=== PATIENT | female | born 1950 | race Caucasian/White ===

== ENCOUNTER 2021-03-07 17:01 | Inpatient (IN) ==
[2021-03-07] MEDS ORDERED: 0.9 % SODIUM CHLORIDE 1,000 ML IV ONE (17:05)
--- NOTE | 2021-03-07 17:35 | EKG ---
[facility] Test Date: 2021-03-07 Pat Name: Toyin Leonardo Department: ED Room: Gender: Female Repatcher: darrion : 1950 Requested By: Filipe Lamb Order Number: [id number] Reading MD: Jeremy Neumann M.D. Measurements Intervals Jean Rate: 105 P: -8 UT: 141 QRS: -43 QRSD: 90 T: 96 QT: 322 QTc: 426 Interpretive Statements Sinus tachycardia Inferior infarct, old NO PRIOR TRACING FOR COMPARISON ABNORMAL ECG Electronically Signed On 03-07-2021 17:35:08 PDT by Jeremy Neumann M.D. /store/M0/[id number]
[2021-03-07 17:49] LABS: Basophils # (Auto) 0.04 K/mcL (0.00-0.20); Basophils % (Auto) 0.3 % (0.0-2.0); Eosinophils # (Auto) 0.09 K/mcL (0.00-0.70); Eosinophils % (Auto) 0.8 % (0.0-7.0); Hematocrit 43.6 % (36.0-48.0); Hemoglobin 14.3 g/dL (12.0-15.0); Lymphocytes # (Auto) 1.27 K/mcL (1.50-4.80); Mean Cell Volume 87.9 fL (80.0-100.0); Mean Corpuscular HGB Conc 32.8 g/dL (31.0-36.0); Mean Platelet Volume 9.6 fL (7.4-10.4); Monocytes # (Auto) 0.52 K/mcL (0.10-0.90); Monocytes % (Auto) 4.5 % (1.0-12.0); Neutrophils % (Auto) 83.4 % (38.0-78.0); Platelet Count 151 K/mcL (140-440); RBC 4.96 M/mcL (4.00-5.20); WBC 11.6 K/mcL (4.5-11.0)
[2021-03-07] MEDS ORDERED: ONDANSETRON 4 MG/2 ML VIAL IV ONE (18:04)
--- NOTE | 2021-03-07 18:04 | Emergency Department Note ---
Dizziness HPI General Chief Complaint: Dizziness Stated Complaint: dizzy Time Seen by Provider: 03/07/21 17:05 Source: patient Mode of arrival: wheelchair Limitations: no limitations History of Present Illness HPI Narrative: Narrative: Pleasant 70-year-old female presents emergency department with concerns of lightheadedness weakness. She had a colonoscopy done today and everything had went fine. She was feeling really weak and lightheaded at home and so she went back to see Faith Whitaker. Patient was orthostatic and lightheaded and Faith was concerned since she was tachycardic as well. On colonoscopy she had no signs of colitis. Patient is a use to having blood in her stool but the one loose stool that she had at home prior to coming to the emergency department did not have any signs of melanotic stool or bloody stool. Patient endorses headache but no changes in vision she denies fever, chest pain, shortness of breath, abdominal pain, nausea or vomiting, or cough. She did have her Covid vaccine. She tested negative prior to the colonoscopy. Related Data Home Medications Medication Instructions Recorded Confirmed omega-3 fatty acids 1,000 mg 1,000 mg PO QDAY 08/02/16 03/07/21 capsule B-complex with vitamin C 1 tab PO QDAY 01/12/19 03/07/21 coQ10 100 mg .ROUTE DAILY 01/12/19 03/07/21 calcium phosphate 250 mg-vit D3 4 tab PO QDAY tab 10/01/19 03/07/21 12.5 mcg (500 unit) chewable tablet emergency c 1 tab PO QDAY 10/01/19 03/07/21 magnesium oxide 400 mg PO QDAY 10/01/19 03/07/21 glwcetvzovqp-awvefixt-dnqlau tablet 1 tab PO QDAY 10/01/19 03/07/21 vitamin E (dl, acetate) 180 mg 180 unit PO QDAY cap 10/01/19 03/07/21 (400 unit) capsule fexofenadine [Genna Allergy] 180 mg PO QDAY 02/15/20 03/07/21 balsalazide 2,250 mg PO TID 03/07/21 03/07/21 budesonide-formoterol [Symbicort] 2 puff INHALATION BID 03/07/21 03/07/21 dicyclomine 20 mg PO PRN PRN 03/07/21 03/07/21 guaifenesin [Mucinex] 600 mg PO DAILY 03/07/21 03/07/21 pantoprazole 40 mg PO QDAY 03/07/21 03/07/21 Previous Rx's Medication Instructions Recorded blood pressure test kit-medium #1 each 04/24/18 albuterol sulfate 90 mcg/actuation 1 puff INHALATION Q6H PRN #6.7 g 02/02/20 aerosol inhaler budesonide 3 mg 3 mg PO QAM 30 Days #30 ea 12/13/20 capsule,delayed,extended release atorvastatin 10 mg tablet 10 mg PO QDAY #90 tab 01/25/21 Allergies Allergy/AdvReac Type Severity Reaction Status Date / Time animal dander AdvReac Intermediate Watery Eye Verified 03/07/21 17:07 grass pollen AdvReac Intermediate Sneezing Verified 03/07/21 17:07 house dust mite AdvReac Intermediate Sneezing Verified 03/07/21 17:07 ragweed pollen AdvReac Intermediate Sneezing Verified 03/07/21 17:07 hay AdvReac Intermediate Watery Eye Uncoded 01/25/21 12:32 trees AdvReac Intermediate Sneezing Uncoded 01/25/21 12:32 Review of Systems ROS ROS Narrative: Narrative: All systems ED: reviewed and negative except as stated. Constitutional: Reports chills Cardiovascular: Reports other (Lightheadedness) PFSH Narrative Patient History Narrative: Narrative: Medical/Surgical/Family History All Active Problems (Updated 03/07/21 @ 19:57 by Chase Medina PA-C) Pneumonia (Acute) Hypoxia (Acute) Medicare annual wellness visit, subsequent (Acute) Abnormal facial hair (Acute) Ulcerative colitis with rectal bleeding (Acute) Hiatal hernia with GERD and esophagitis (Acute) Cholelithiasis and cholecystitis with obstruction (Acute) Hematochezia (Acute) Pulmonary hypertension (Chronic) Aortic insufficiency (Acute ~04/2018) Mitral regurgitation (Acute ~04/2018) Fatigue (Acute) Heart palpitations (Acute) Hypertension (Chronic) Hyperlipidemia (Chronic ~2013) Hirsutism (Chronic) COPD (chronic obstructive pulmonary disease) (Chronic) Hemorrhoids, internal (Chronic) Rotator cuff syndrome (Chronic) Tendinitis, calcific, shoulder (Chronic) Osteoarthritis (Chronic) Postherpetic neuralgia (Acute) Medical History Aortic insufficiency (~04/2018) MILD COPD (chronic obstructive pulmonary disease) 01/25/21-50+ years of smoking, stable with symboicort 160/4.5mcg 2 puffs bid. Emphysema/COPD Fatigue GERD (gastroesophageal reflux disease) heartburn with lying down; omeprazole has resolved this Hemorrhoids, internal as below Hirsutism History of tobacco use Hyperlipidemia (~2013) 01/25/21controlled on statin medications Hypertension Left shoulder strain Lentigo benign Medicare annual wellness visit, subsequent Mild pulmonary hypertension Mitral regurgitation (~04/2018) MILD Neoplasm of skin uncertain behavior Non-cardiac chest pain previous cardiac evaluation has been negative, Dr. Kim Osteoarthritis Pain in joint, shoulder region Pulmonary hypertension Rotator cuff syndrome of left shoulder Seborrheic keratosis Shoulder pain (~2013) left shoulder pain intermittent, not debilitating for her Tendinitis, calcific, shoulder left Thyroid disorder Pt. had thyroid disorder in 9th grade. In 1972 when she was , blood work was done and it was normal. Ulcerative colitis Surgical History H/O shoulder surgery (~2014) Left, Dr. Hernandez H/O tubal ligation (~1984) History of laparoscopic cholecystectomy 03/02/2020 Hx of cataract surgery (~2010) Loss of teeth due to extraction has false teeth 1998 Family History Family/Other Diabetes Uncles Family/Other Diabetes Cousin Grandfather Heart attack Maternal Hypertension, essential Maternal Father , age 92 Hypertension, essential Aortic aneurysm Mother , age 92 Hypertension, essential CHF (congestive heart failure) Grandmother Hypertension, essential Maternal Dementia Maternal Family/Other Dementia Aunts Cancer Aunt Sister , age 48 Cancer Social History Smoking Status: Former smoker Alcohol Intake Frequency: does not drink Substance Use: does not use Exam Narrative Narrative: Narrative: General Limitations: no limitations General appearance: Present in no apparent distress Head Head: Present atraumatic and normocephalic Eye Eye: Present EOMI Respiratory Respiratory: Present other Course Vital Signs Vital signs: Vital Signs Temperature 98.3 F 03/07/21 17:02 Pulse Rate 114 H 03/07/21 17:02 Respiratory Rate 18 03/07/21 17:02 Blood Pressure 113/55 03/07/21 17:02 Pulse Oximetry (%) 83 L 03/07/21 17:02 Temperature 98.3 F 03/07/21 17:02 Pulse Rate 116 H 03/07/21 19:31 Respiratory Rate 18 03/07/21 17:02 Blood Pressure 111/47 03/07/21 19:31 Pulse Oximetry (%) 92 03/07/21 19:31 MDM MDM Narrative Medical decision making narrative: Narrative: Rapid Covid negative EKG shows sinus tachycardia at 105 beats a minute left axis deviation there is no signs of Brugada, Suofw-Agxrwieif-Fxvnr or HOCM. There is no ST segment deviations or hyperacute T waves. My interpretation is sinus tachycardia Troponin negative Pro-BMP pending at discharge Chest x ray1. Interstitial infiltrates within the left lung superimposed upon chronic disease 2. Interstitial pneumonia including covid suspected toradol for pain, zofran for nausea. Due to the patient's new oxygen requirement we will admit her for further evaluation and treatment. I have started the patient on Rocephin Flagyl and azithromycin. I spoke with Dr. Saleh who agreed to admit the patient for further evaluation and treatment. He came to the emergency department to evaluate the patient. Lab Data Result diagrams: 03/07/21 17:18 03/07/21 17:18 Labs: Lab Results 03/07/21 03/07/21 03/07/21 Range/Units 17:18 17:18 17:18 WBC 11.6 H (4.5-11.0) K/mcL RBC 4.96 (4.00-5.20) M/mcL Hgb 14.3 (12.0-15.0) g/dL Hct 43.6 (36.0-48.0) % MCV 87.9 (80.0-100.0) fL MCH 28.8 (26.0-34.0) pg MCHC 32.8 (31.0-36.0) g/dL RDW 14.0 (11.5-14.5) % Plt Count 151 (140-440) K/mcL MPV 9.6 (7.4-10.4) fL Neut % (Auto) 83.4 H (38.0-78.0) % Lymph % (Auto) 11.0 L (15.0-49.0) % [place] % (Auto) 4.5 (1.0-12.0) % Eos % (Auto) 0.8 (0.0-7.0) % Baso % (Auto) 0.3 (0.0-2.0) % Lymph # (Auto) 1.27 L (1.50-4.80) K/mcL [place] # (Auto) 0.52 (0.10-0.90) K/mcL Eos # (Auto) 0.09 (0.00-0.70) K/mcL Baso # (Auto) 0.04 (0.00-0.20) K/mcL Absolute Neutrophils 9.64 H (1.80-8.00) K/mcL Sodium 135 (133-145) mmol/L Potassium 3.1 L (3.3-5.1) mmol/L Chloride 94 L (96-108) mmol/L Carbon Dioxide 29 (22-30) mmol/L Anion Gap 12.0 (8.0-16.0) BUN 12 (8-23) mg/dL Creatinine 0.8 (0.6-1.1) mg/dL GFR Calculation 73 Glucose 132 H (70-105) mg/dL Calcium 8.7 (8.6-10.4) mg/dL Total Bilirubin 1.5 H (0.1-1.0) mg/dL AST 65 H (<32) U/L ALT 41 H (<40) U/L Alkaline Phosphatase 86 (39-117) U/L Troponin T < 0.01 (<0.03) ng/mL C-Reactive Protein (0.03-0.80) mg/dL Total Protein 6.6 (5.9-8.4) gm/dL Albumin 4.1 (3.2-5.2) gm/dL Globulin 2.5 (2.2-3.7) gm/dL Albumin/Globulin Ratio 1.6 (1.0-2.3) 03/07/21 Range/Units 17:18 WBC (4.5-11.0) K/mcL RBC (4.00-5.20) M/mcL Hgb (12.0-15.0) g/dL Hct (36.0-48.0) % MCV (80.0-100.0) fL MCH (26.0-34.0) pg MCHC (31.0-36.0) g/dL RDW (11.5-14.5) % Plt Count (140-440) K/mcL MPV (7.4-10.4) fL Neut % (Auto) (38.0-78.0) % Lymph % (Auto) (15.0-49.0) % [place] % (Auto) (1.0-12.0) % Eos % (Auto) (0.0-7.0) % Baso % (Auto) (0.0-2.0) % Lymph # (Auto) (1.50-4.80) K/mcL [place] # (Auto) (0.10-0.90) K/mcL Eos # (Auto) (0.00-0.70) K/mcL Baso # (Auto) (0.00-0.20) K/mcL Absolute Neutrophils (1.80-8.00) K/mcL Sodium (133-145) mmol/L Potassium (3.3-5.1) mmol/L Chloride (96-108) mmol/L Carbon Dioxide (22-30) mmol/L Anion Gap (8.0-16.0) BUN (8-23) mg/dL Creatinine (0.6-1.1) mg/dL GFR Calculation Glucose (70-105) mg/dL Calcium (8.6-10.4) mg/dL Total Bilirubin (0.1-1.0) mg/dL AST (<32) U/L ALT (<40) U/L Alkaline Phosphatase (39-117) U/L Troponin T (<0.03) ng/mL C-Reactive Protein 1.30 H (0.03-0.80) mg/dL Total Protein (5.9-8.4) gm/dL Albumin (3.2-5.2) gm/dL Globulin (2.2-3.7) gm/dL Albumin/Globulin Ratio (1.0-2.3) ED POC Tests ED POC Tests: LINDSAY - SARS Antigen Negative Discharge Plan Patient/Caregiver Discharge Instructions Pt seen by RELIEF MAN/PA only: Yes Clinical Impression: Pneumonia, Hypoxia Patient Disposition: Xfer As Inpt ([facility]) Condition: Fair Follow up with: Yanna Moscoso PA-C [Primary Care Provider] - Prescriptions: No Action (DME) blood pressure test kit-medium kit See Dose Instructions .ROUTE .MEDSUPPLY Qty: 1 RF: 0 albuterol sulfate [ProAir HFA] 90 mcg/actuation HFA aerosol inhaler 1 puff INHALATION Q6H PRN (Reason: shortness of breath) Qty: 6.7 RF: 2 omega-3 fatty acids [Fish Oil Concentrate] 1,000 mg capsule 1,000 mg PO QDAY RF: 0 vitamin E (dl, acetate) 400 unit capsule 180 unit PO QDAY RF: 0 B-complex with vitamin C [Super B Complex-Vitamin C] tablet 1 tab PO QDAY RF: 0 coQ10 tablet 100 mg .Route DAILY RF: 0 atorvastatin 10 mg tablet 10 mg tablet 10 mg PO QDAY Qty: 90 RF: 3 budesonide [Entocort EC] 3 mg capsule,delayed,extend.release 3 mg PO QAM 30 Days Qty: 30 RF: 3 magnesium oxide 250 mg magnesium tablet 400 mg PO QDAY RF: 0 emergency c 1 tab PO QDAY RF: 0 plcfzajdtqke-baihakht-scryja Tablet 1 tab PO QDAY RF: 0 calcium phosphate-vitamin D3 [Citracal-D3 Gummies] 250 mg calcium- 500 unit tablet,chewable 4 tab PO QDAY RF: 0 fexofenadine [Genna Allergy] 180 mg Tablet 180 mg PO QDAY RF: 0 balsalazide 750 mg Capsule 2,250 mg PO TID RF: 0 budesonide-formoterol [Symbicort] 80-4.5 mcg/actuation Hfa Aerosol Inhaler 2 puff INHALATION BID RF: 0 guaifenesin [Mucinex] 600 mg Tablet Extended Release 12hr 600 mg PO DAILY RF: 0 pantoprazole 20 mg tablet,delayed release (DR/EC) 40 mg PO QDAY RF: 0 dicyclomine 20 mg tablet 20 mg PO PRN PRN (Reason: Diarrhea) RF: 0
[2021-03-07 18:12] LABS: ALT/SGPT 41 U/L (<40); AST/SGOT 65 U/L (<32); Albumin 4.1 gm/dL (3.2-5.2); Albumin/Globulin Ratio 1.6 (1.0-2.3); Alkaline Phosphatase 86 U/L (39-117); Bilirubin,Total 1.5 mg/dL (0.1-1.0); Blood Urea Nitrogen 12 mg/dL (8-23); Calcium 8.7 mg/dL (8.6-10.4); Carbon Dioxide 29 mmol/L (22-30); Chloride 94 mmol/L (96-108); Globulin 2.5 gm/dL (2.2-3.7); Glomerular Filtration Rate 73; Glucose 132 mg/dL (70-105)
--- NOTE | 2021-03-07 18:32 | XRay Report ---
INDICATION: hypoxia TECHNIQUE: AP portable upright chest x-ray COMPARISON: Previous chest CT scans dated 01/26/2021, 07/13/2019, 05/17/2018 FINDINGS: Lungs:Lungs are abnormal. Previous CT scans demonstrates subpleural cystic change consistent with honeycombing. There is also reticular abnormality. This is mildly progressive from 06/04/2018 2 01/26/2021. There is no definite bronchiectasis. Appearance is consistent with a UIP pattern. This may be due to collagen vascular disease. Interstitial fibrosis is possible although progression has been slow. Interval development of left-sided infiltrates. These are interstitial. Appearance is consistent with superimposed pneumonia upon underlying lung disease. Covid pneumonia is possible. Clinical correlation and follow-up radiograph recommended. No focal right-sided infiltrates. Heart, vascular:No significant cardiomegaly. Pulmonary vascularity is normal. No pulmonary edema or pulmonary congestion Mediastinum, lewis:No mediastinal widening. No hilar mass Pleura:No pleural fluid. No pleural-based mass or calcification Skeletal:Negative. IMPRESSION: 1. Interstitial infiltrates within the left lung superimposed upon chronic disease 2. Interstitial pneumonia including covid suspected Interpreted and Authenticated by: Howard Trujillo 03/07/21
[2021-03-07] MEDS ORDERED: KETOROLAC 15 MG/ML VIAL IV ONE (18:34)
[2021-03-07] MEDS ORDERED: cefTRIAXone 2 GM in DEXTROSE 5% IN WATER 50 ML IV ONE (19:21)
[2021-03-07] MEDS ORDERED: metroNIDAZOLE 500 MG/100 ML BAG IV ONE (19:22)
[2021-03-07] MEDS ORDERED: AZITHROMYCIN 500 MG in DEXTROSE 5% IN WATER 250 ML IV ONE ×2 (19:22→21:00)
--- NOTE | 2021-03-07 19:33 | Internal Med History&Physical ---
HPI History of Present Illness Patient information: Note initiated : 03/07/21 at 7:30 pm Service Date, if different from initiated Date: [] Patient: Toyin Leonardo a 70 y/o F admitted on for dizzy. Chief Complaint: [] History of present illness: Ms. Leonardo is a 70 year old F Who underwent a colonoscopy today and has a history of ulcerative colitis with occasional rectal bleeding. Colonoscopy report is read as postop diagnosis resolved colitis. She says she started feeling quite ill later on in the day with nausea vomiting headache dizziness. She was not feeling that well afterwards but attributed that to the bowel prep and feeling dehydrated. She went to see Faith Whitaker who noted she was tachycardic and orthostatic and sent her to the ED. In the ED she was hypoxic at 83% on room air. Chest x-ray showed left side infiltrate. Patient did say she was left lateral recumbent position during the procedure. She denies cough currently. Review of Systems: Pertinent positives as above. Denies /fever/chills//chest or abdominal pain/cough/dyspnea. Otherwise see above. PFSH PFSH All Active Problems Medicare annual wellness visit, subsequent (Acute) Abnormal facial hair (Acute) Ulcerative colitis with rectal bleeding (Acute) Hiatal hernia with GERD and esophagitis (Acute) Cholelithiasis and cholecystitis with obstruction (Acute) Hematochezia (Acute) Pulmonary hypertension (Chronic) Aortic insufficiency (Acute ~04/2018) Mitral regurgitation (Acute ~04/2018) Fatigue (Acute) Heart palpitations (Acute) Hypertension (Chronic) Hyperlipidemia (Chronic ~2013) Hirsutism (Chronic) COPD (chronic obstructive pulmonary disease) (Chronic) Hemorrhoids, internal (Chronic) Rotator cuff syndrome (Chronic) Tendinitis, calcific, shoulder (Chronic) Osteoarthritis (Chronic) Postherpetic neuralgia (Acute) Medical History Aortic insufficiency (~04/2018) MILD COPD (chronic obstructive pulmonary disease) 01/25/21-50+ years of smoking, stable with symboicort 160/4.5mcg 2 puffs bid. Emphysema/COPD Fatigue GERD (gastroesophageal reflux disease) heartburn with lying down; omeprazole has resolved this Hemorrhoids, internal as below Hirsutism History of tobacco use Hyperlipidemia (~2013) 01/25/21controlled on statin medications Hypertension Left shoulder strain Lentigo benign Medicare annual wellness visit, subsequent Mild pulmonary hypertension Mitral regurgitation (~04/2018) MILD Neoplasm of skin uncertain behavior Non-cardiac chest pain previous cardiac evaluation has been negative, Dr. Kim Osteoarthritis Pain in joint, shoulder region Pulmonary hypertension Rotator cuff syndrome of left shoulder Seborrheic keratosis Shoulder pain (~2013) left shoulder pain intermittent, not debilitating for her Tendinitis, calcific, shoulder left Thyroid disorder Pt. had thyroid disorder in 9th grade. In 1972 when she was , blood work was done and it was normal. Ulcerative colitis Surgical History H/O shoulder surgery (~2014) Left, Dr. Hernandez H/O tubal ligation (~1984) History of laparoscopic cholecystectomy 03/02/2020 Hx of cataract surgery (~2010) Loss of teeth due to extraction has false teeth 1998 Family History Family/Other Diabetes Uncles Family/Other Diabetes Cousin Grandfather Heart attack Maternal Hypertension, essential Maternal Father , age 92 Hypertension, essential Aortic aneurysm Mother , age 92 Hypertension, essential CHF (congestive heart failure) Grandmother Hypertension, essential Maternal Dementia Maternal Family/Other Dementia Aunts Cancer Aunt Sister , age 48 Cancer Social History (Updated 01/25/21 @ 12:22 by Anali Traore RN) household members: alone housing: house marital status: occupational status: retired occupation: [employer] work in [employer] pets and animals: No sexually active: No other: Children-3 well-balanced diet: daily or most days during the past year weight has: remained stable frequency: 3-4 times per week smoking status: Former smoker quit date: 08/05/14 pack-years: 50 smoking status start date: 08/05/72 smoking status stop date: 10/01/19 alcohol intake frequency: does not drink substance use type: does not use alycia/gnosticist: Spiritism seatbelt use: always victim of physical abuse: No victim of emotional abuse: No victim of sexual abuse: No MEDS/ALLERGIES Home Medications and Allergies Home Medications Medication Instructions Recorded Confirmed Type omega-3 fatty acids 1,000 mg 1,000 mg PO QDAY 08/02/16 03/07/21 History capsule blood pressure test kit-medium #1 each 04/24/18 03/07/21 Rx B-complex with vitamin C 1 tab PO QDAY 01/12/19 03/07/21 History coQ10 100 mg .ROUTE DAILY 01/12/19 03/07/21 History calcium phosphate 250 mg-vit D3 4 tab PO QDAY tab 10/01/19 03/07/21 History 12.5 mcg (500 unit) chewable tablet emergency c 1 tab PO QDAY 10/01/19 03/07/21 History magnesium oxide 400 mg PO QDAY 10/01/19 03/07/21 History goevfmmcqzuh-pcmuluti-uvftmu tablet 1 tab PO QDAY 10/01/19 03/07/21 History vitamin E (dl, acetate) 180 mg 180 unit PO QDAY cap 10/01/19 03/07/21 History (400 unit) capsule albuterol sulfate 90 mcg/actuation 1 puff INHALATION Q6H PRN #6.7 g 02/02/20 03/07/21 Rx aerosol inhaler fexofenadine [Genna Allergy] 180 mg PO QDAY 02/15/20 03/07/21 History budesonide 3 mg 3 mg PO QAM 30 Days #30 ea 12/13/20 03/07/21 Rx capsule,delayed,extended release atorvastatin 10 mg tablet 10 mg PO QDAY #90 tab 01/25/21 03/07/21 Rx balsalazide 2,250 mg PO TID 03/07/21 03/07/21 History budesonide-formoterol [Symbicort] 2 puff INHALATION BID 03/07/21 03/07/21 History dicyclomine 20 mg PO PRN PRN 03/07/21 03/07/21 History guaifenesin [Mucinex] 600 mg PO DAILY 03/07/21 03/07/21 History pantoprazole 40 mg PO QDAY 03/07/21 03/07/21 History Allergies Allergy/AdvReac Type Severity Reaction Status Date / Time animal dander AdvReac Intermediate Watery Eye Verified 03/07/21 17:07 grass pollen AdvReac Intermediate Sneezing Verified 03/07/21 17:07 house dust mite AdvReac Intermediate Sneezing Verified 03/07/21 17:07 ragweed pollen AdvReac Intermediate Sneezing Verified 03/07/21 17:07 hay AdvReac Intermediate Watery Eye Uncoded 01/25/21 12:32 trees AdvReac Intermediate Sneezing Uncoded 01/25/21 12:32 EXAM Constitutional Vitals: Temp Pulse Resp BP Pulse Ox 98.3 F 113 H 18 123/56 95 03/07/21 17:02 03/07/21 18:43 03/07/21 17:02 03/07/21 18:31 03/07/21 18:43 Exam: General: Alert, Awake, No acute Distress Eyes/N/T: EOMI, PERRL, Head/Neck: neck supple, normocephalic atraumatic CV: RRR, No murmurs, normal s1/s2 Pulm: Left-sided rhonchi/rales, no Abd: soft, nontender, +BS x4 Ext: no clubbing/cyanosis/edema Neuro: Alert, no focal deficits, moves all extremities, CN 2-12 grossly intact, symmetrical strength b/l upper/lower, sensations intact b/l upper/lower Skin: warm/dry DATA Data Completed and Pending Labs: Labs from last 24 hours 03/07/21 03/07/21 03/07/21 18:43 17:18 17:18 WBC RBC Hgb Hct MCV MCH MCHC RDW Plt Count MPV Neut % (Auto) Lymph % (Auto) [place] % (Auto) Eos % (Auto) Baso % (Auto) Lymph # (Auto) [place] # (Auto) Eos # (Auto) Baso # (Auto) Absolute Neutrophils Platelet Estimate RBC Morphology Sodium Potassium Chloride Carbon Dioxide Anion Gap BUN Creatinine GFR Calculation Glucose Calcium Total Bilirubin AST ALT Alkaline Phosphatase Troponin T C-Reactive Protein Pending NT-Pro-B Natriuret Pep Pending Total Protein Albumin Globulin Albumin/Globulin Ratio Procalcitonin Pending 03/07/21 03/07/21 03/07/21 17:18 17:18 17:18 WBC RBC Hgb Hct MCV MCH MCHC RDW Plt Count MPV Neut % (Auto) Lymph % (Auto) [place] % (Auto) Eos % (Auto) Baso % (Auto) Lymph # (Auto) Winston # (Auto) Eos # (Auto) Baso # (Auto) Absolute Neutrophils Platelet Estimate Pending RBC Morphology Pending Sodium 135 Potassium 3.1 L Chloride 94 L Carbon Dioxide 29 Anion Gap 12.0 BUN 12 Creatinine 0.8 GFR Calculation 73 Glucose 132 H Calcium 8.7 Total Bilirubin 1.5 H AST 65 H ALT 41 H Alkaline Phosphatase 86 Troponin T < 0.01 C-Reactive Protein NT-Pro-B Natriuret Pep Total Protein 6.6 Albumin 4.1 Globulin 2.5 Albumin/Globulin Ratio 1.6 Procalcitonin 03/07/21 17:18 WBC 11.6 H RBC 4.96 Hgb 14.3 Hct 43.6 MCV 87.9 MCH 28.8 MCHC 32.8 RDW 14.0 Plt Count 151 MPV 9.6 Neut % (Auto) 83.4 H Lymph % (Auto) 11.0 L Winston % (Auto) 4.5 Eos % (Auto) 0.8 Baso % (Auto) 0.3 Lymph # (Auto) 1.27 L Winston # (Auto) 0.52 Eos # (Auto) 0.09 Baso # (Auto) 0.04 Absolute Neutrophils 9.64 H Platelet Estimate RBC Morphology Sodium Potassium Chloride Carbon Dioxide Anion Gap BUN Creatinine GFR Calculation Glucose Calcium Total Bilirubin AST ALT Alkaline Phosphatase Troponin T C-Reactive Protein NT-Pro-B Natriuret Pep Total Protein Albumin Globulin Albumin/Globulin Ratio Procalcitonin A/P Narrative A/P Narrative: A: *Aspiration pneumonitis vs pneumonia: *Acute hypoxic respiratory failure: 2/2 above *Hypokalemia: *COPD(not on home O2): Follows with pulmonology *h/o UC: Follows with Dr. Morris *GERD: * P: -Rocephin/Flagyl -IS/Acapella -Electrolyte replacement -IVF - -pt/ot -ppx: ambulation/SCDs (chemical given history of rectal bleeding from UC) /home PPI full code Time Spent With Patient Time: Total time spent is greater than 50% in coordination of care (as documented) at patient's floor/unit and/or counseling patient:
[2021-03-07 19:58] LABS: Band Neutrophils % 1 % (0-10); Eosinophils % (Manual) 2 % (0-7); Lymphocytes % 17 % (15-49); Monocytes % (Manual) 3 % (1-12); Platelet Estimate NORMAL (Normal); RBC Morphology NORMAL (Normal); Segmented Neutrophils % 77 % (38-78)
[2021-03-07] MEDS ORDERED: POTASSIUM CHLORIDE 20 MEQ TABLET PO PRN ×2 (20:38)
[2021-03-07] MEDS ORDERED: METOCLOPRAMIDE 10 MG/2 ML VIAL IV PRN (20:38)
[2021-03-07] MEDS ORDERED: POLYETHYLENE GLYCOL 3350 17 GM PACKET PO PRN (20:38)
[2021-03-07] MEDS ORDERED: IPRATROPIUM/ALBUTEROL 3 ML AMPUL.NEB NEB PRN (20:38)
[2021-03-07] MEDS ORDERED: POTASSIUM CHLORIDE 20 MEQ in DEXTROSE 5% IN WATER 250 ML IV ONE (20:38)
[2021-03-07] MEDS ORDERED: POTASSIUM CHLORIDE 40 MEQ in DEXTROSE 5% IN WATER 500 ML IV PRN (20:38)
[2021-03-07] MEDS ORDERED: 0.9 % SODIUM CHLORIDE 1,000 ML IV SCH (20:38)
[2021-03-07] MEDS ORDERED: ONDANSETRON 4 MG/2 ML VIAL IV PRN (20:38)
[2021-03-07] MEDS ORDERED: MAGNESIUM SULFATE 2 GM/50 ML BAG IV PRN (20:38)
[2021-03-07] MEDS ORDERED: SENNOSIDES 1 TABLET PO PRN (20:38)
[2021-03-07] MEDS: metroNIDAZOLE 500 MG/100 ML BAG IV SCH (21:07)
[2021-03-07] MEDS ORDERED: POTASSIUM CHLORIDE 20 MEQ/10 ML VIAL IV ONE (21:44)
[2021-03-07] MEDS: 0.9 % SODIUM CHLORIDE 10 ML SYRINGE IV SCH (22:08)
[2021-03-07] MEDS: ACETAMINOPHEN 325 MG TABLET PO PRN (22:44)
[2021-03-07] MEDS ORDERED: LACTATED RINGERS 1,000 ML IV ONE (23:34)
[2021-03-07] MEDS ORDERED: LACTATED RINGERS 500 ML IV ONE (23:34)
[2021-03-08] MEDS ORDERED: LACTATED RINGERS 500 ML IV ONE (00:45)
[2021-03-08 01:40] LABS: Appearance,Urine CLEAR (Clear); Bilirubin,Urine Negative (Negative); Color,Urine YELLOW; Culture Indicated,Urine yes; Glucose,Urine (UA) Negative (Negative); Ketones,Urine Negative (Negative); Leukocyte Esterase,Urine 500 /ug (Negative); Nitrate,Urine Negative (Negative); Protein,Urine Negative (Negative); Specific Gravity,Urine 1.004 (1.000-1.035); Urine Blood >=1.0 mg/dL (Negative); Urine RBC 6 /hpf (0-3); Urine Squamous Epithelial Cell < 1 /hpf (0-4); Urine WBC 42 /hpf (0-4); Urobilinogen,Urine Negative
[2021-03-08] MEDS ORDERED: LACTATED RINGERS 250 ML IV ONE (02:00)
[2021-03-08] MEDS: ACETAMINOPHEN 325 MG TABLET PO PRN (04:55)
[2021-03-08] MEDS: metroNIDAZOLE 500 MG/100 ML BAG IV SCH ×3 (05:26→23:20)
[2021-03-08] MEDS: 0.9 % SODIUM CHLORIDE 10 ML SYRINGE IV SCH ×3 (06:01→23:20)
[2021-03-08] MEDS: PANTOPRAZOLE 40 MG TABLET PO SCH (07:20)
[2021-03-08 07:27] LABS: Basophils # (Auto) 0.04 K/mcL (0.00-0.20); Basophils % (Auto) 0.3 % (0.0-2.0); Eosinophils # (Auto) 0.12 K/mcL (0.00-0.70); Eosinophils % (Auto) 0.8 % (0.0-7.0); Hematocrit 37.9 % (36.0-48.0); Hemoglobin 11.9 g/dL (12.0-15.0); Lymphocytes # (Auto) 1.67 K/mcL (1.50-4.80); Lymphocytes % (Auto) 10.7 % (15.0-49.0); Mean Cell Volume 90.5 fL (80.0-100.0); Mean Corpuscular HGB Conc 31.4 g/dL (31.0-36.0); Mean Platelet Volume 10.2 fL (7.4-10.4); Monocytes # (Auto) 1.07 K/mcL (0.10-0.90); Monocytes % (Auto) 6.9 % (1.0-12.0); Neutrophils % (Auto) 81.3 % (38.0-78.0); Platelet Count 135 K/mcL (140-440); RBC 4.19 M/mcL (4.00-5.20); Red Cell Distribution Width 14.6 % (11.5-14.5); WBC 15.6 K/mcL (4.5-11.0)
[2021-03-08 07:36] LABS: ALT/SGPT 33 U/L (<40); AST/SGOT 51 U/L (<32); Albumin/Globulin Ratio 1.4 (1.0-2.3); Alkaline Phosphatase 69 U/L (39-117); Bilirubin,Direct 0.3 mg/dL (<0.3); Bilirubin,Total 1.1 mg/dL (0.1-1.0); Blood Urea Nitrogen 10 mg/dL (8-23); Calcium 8.1 mg/dL (8.6-10.4); Carbon Dioxide 26 mmol/L (22-30); Chloride 104 mmol/L (96-108); Globulin 2.2 gm/dL (2.2-3.7); Glomerular Filtration Rate 73; Glucose 93 mg/dL (70-105); Lactate Dehydrogenase 283 U/L (135-225); Phosphorous 2.5 mg/dL (2.5-4.5); Triglycerides 57 mg/dL (<150); Uric Acid 4.9 mg/dL (2.5-8.0)
--- NOTE | 2021-03-08 07:59 | Internal Med Progress Note ---
SUBJECTIVE Subjective Patient information: Note initiated : 03/08/21 at 7:55 am Service Date, if different from initiated Date: [] Patient: Toyin Leonardo 70 y/o F admitted on 03/07/21 for dizzy. Chief Complaint: [] Interval history: History of present illness: Ms. Leonardo is a 70 year old F Who underwent a colonoscopy today and has a history of ulcerative colitis with occasional rectal bleeding. Colonoscopy report is read as postop diagnosis resolved colitis. She says she started feeling quite ill later on in the day with nausea vomiting headache dizziness. She was not feeling that well afterwards but attributed that to the bowel prep and feeling dehydrated. She went to see Faith Whitaker who noted she was tachycardic and orthostatic and sent her to the ED. In the ED she was hypoxic at 83% on room air. Chest x-ray showed left side infiltrate. Patient did say she was left lateral recumbent position during the procedure. She denies cough currently. 8/4 Feeling much better today after IV fluid boluses. Poor sleep. Headaches. No vomiting. Review of Systems: denies headache/fever/chills/vomiting/chest or abdominal pain/cough/dysp amor/diarrhea. Otherwise see above. Constitutional Vitals: Vital Signs Temp Pulse Resp BP Pulse Ox 98.6 F 84 16 98/56 94 03/08/21 03:19 03/08/21 03:19 03/08/21 03:19 03/08/21 03:59 03/08/21 03:19 Period Temp Pulse Resp BP Sys/Woodson Pulse Ox Last 24 Hr 98.3 F-99.2 F 82-116 16-18 79-129/37-64 83-95 Intake and Output 03/07/21 03/08/21 03/08/21 21:59 05:59 13:59 Intake Total 999 1810 1150 Output Total 1500 300 Balance 999 310 850 Weight 71.078 kg Intake & Output: Intake & Output 03/07/21 03/08/21 03/08/21 21:59 05:59 13:59 Intake Total 999 1810 1150 Output Total 1500 300 Balance 999 310 850 Weight 71.078 kg Intake: IV 999 1610 1150 Sodium Chloride 0.9% 1,000 ml @ 999 1000 75 mls/hr IV .[id number] [facility] Rx#: [id number] Zithromax 500 mg In Dextrose 5% 250 in Water 250 ml @ 250 mls/hr IV ONCE ONE Rx#:[id number] Lactated Ringers 1,000 ml @ 1000 Wide Open IV BOLUS ONE Rx#: [id number] Potassium Chloride 20 Meq In 260 Dextrose 5% in Water 250 ml @ 130 mls/hr IV ONCE ONE Rx#: [id number] Rocephin 2 gm In Dextrose 5% in 50 Water 50 ml @ 100 mls/hr IV ONCE ONE Rx#:[id number] Oral 200 Output: Void Amount 1500 300 Other: Urine Appearance Clear Urine Color Bright Yellow Pale Exam: General: Alert, Awake, No acute Distress Eyes/N/T: EOMI, Head/Neck: neck supple, CV: RRR, No murmurs, Pulm: Left-sided rhonchi/rales, no wheezing Abd: soft, nontender, +BS x4 Ext: no clubbing/cyanosis/edema Neuro: Alert, no focal deficits, moves all extremities, Skin: warm/dry OBJ DATA Labs CBC & Chem 7: 03/08/21 05:18 03/08/21 05:18 Labs: Abnormal Lab Results 03/08/21 03/08/21 03/08/21 05:18 05:18 05:17 WBC 15.6 H Hgb 11.9 L RDW 14.6 H Plt Count 135 L Neut % (Auto) 81.3 H Lymph % (Auto) 10.7 L Lymph # (Auto) [place] # (Auto) 1.07 H Absolute Neutrophils 12.66 H Potassium Chloride Anion Gap 7.0 L Glucose Calcium 8.1 L Total Bilirubin 1.1 H Direct Bilirubin 0.3 H GGT 67 H AST 51 H ALT Lactate Dehydrogenase 283 H C-Reactive Protein 9.30 H NT-Pro-B Natriuret Pep Total Protein 5.2 L Albumin 3.0 L Procalcitonin Urine Occult Blood Ur Leukocyte Esterase Urine RBC Urine WBC 03/07/21 03/07/21 03/07/21 18:43 17:18 17:18 WBC Hgb RDW Plt Count Neut % (Auto) Lymph % (Auto) Lymph # (Auto) [place] # (Auto) Absolute Neutrophils Potassium Chloride Anion Gap Glucose Calcium Total Bilirubin Direct Bilirubin GGT AST ALT Lactate Dehydrogenase C-Reactive Protein 1.30 H NT-Pro-B Natriuret Pep 198.4 H Total Protein Albumin Procalcitonin 0.66 H Urine Occult Blood Ur Leukocyte Esterase Urine RBC Urine WBC 03/07/21 03/07/21 03/07/21 17:18 17:18 01:10 WBC 11.6 H Hgb RDW Plt Count Neut % (Auto) 83.4 H Lymph % (Auto) 11.0 L Lymph # (Auto) 1.27 L [place] # (Auto) Absolute Neutrophils 9.64 H Potassium 3.1 L Chloride 94 L Anion Gap Glucose 132 H Calcium Total Bilirubin 1.5 H Direct Bilirubin GGT AST 65 H ALT 41 H Lactate Dehydrogenase C-Reactive Protein NT-Pro-B Natriuret Pep Total Protein Albumin Procalcitonin Urine Occult Blood >=1.0 A Ur Leukocyte Esterase 500 A Urine RBC 6 H Urine WBC 42 H Meds: Medications Acetaminophen (Acetaminophen 325 Mg Tablet) 650 mg PO Q6HP PRN PRN Reason: PAIN/FEVER > 101 Last Admin: 03/08/21 04:55 Dose: 650 mg Documented by: Albuterol/Ipratropium (Ipratropium/Albuterol 3 Ml Ampul.Neb) 3 ml NEB Q4HP PRN PRN Reason: Shortness Of Breath Last Admin: 03/07/21 22:56 Dose: 3 ml Documented by: Potassium Chloride 40 meq/ (Dextrose) 520 mls @ 130 mls/hr IV UD PRN PRN Reason: Potassium < 3 Magnesium Sulfate (Magnesium Sulfate) 2 gm in 50 mls @ 50 mls/hr IV UD PRN PRN Reason: Magnesium </= 1.6 Sodium Chloride (Sodium Chloride 0.9%) 1,000 mls @ 75 mls/hr IV .[id number] [facility] Stop: 03/08/21 09:57 Last Infusion: 03/08/21 06:43 Dose: Infused Documented by: Ceftriaxone Sodium 2 gm/ (Dextrose) 50 mls @ 100 mls/hr IV Q24H LOUISA; Protocol Metronidazole (Flagyl) 500 mg in 100 mls @ 100 mls/hr IV Q8H LOUISA; Protocol Last Infusion: 03/08/21 07:27 Dose: Infused Documented by: Metoclopramide HCl (Metoclopramide 10 Mg/2 Ml Vial) 10 mg IV Q6HP PRN PRN Reason: Nausea And Vomiting Ondansetron HCl (Ondansetron 4 Mg/2 Ml Vial) 4 mg IV Q4HP PRN PRN Reason: Nausea And Vomiting Pantoprazole Sodium (Pantoprazole 40 Mg Tablet) 40 mg PO QAMAC [facility] Last Admin: 03/08/21 07:20 Dose: 40 mg Documented by: Polyethylene Glycol (Polyethylene Glycol 3350 17 Gm Packet) 17 gm PO DAILYP PRN PRN Reason: Constipation Potassium Chloride (Potassium Chloride 20 Meq Tablet) 40 meq PO UD PRN PRN Reason: Potssium is 3-3.5 Potassium Chloride (Potassium Chloride 20 Meq Tablet) 40 meq PO UD PRN PRN Reason: Potassium < 3 Senna (Sennosides 1 Tablet) 2 tab PO DAILYP PRN PRN Reason: Constipation Sodium Chloride (0.9 % Sodium Chloride 10 Ml Syringe) 10 ml IV Q8 [facility] Last Admin: 03/08/21 06:01 Dose: Not Given Documented by: A/P Narrative A/P Narrative: A: *Aspiration pneumonitis vs pneumonia: *Acute hypoxic respiratory failure: 2/2 above -on 2L NC *Hypokalemia: resolved *COPD(not on home O2): Follows with pulmonology *h/o UC: Follows with Dr. Morris *GERD: * P: -Rocephin/Flagyl -IS/Acapella, wean O2 -Electrolyte replacement -IVF -pt/ot -ppx: ambulation/SCDs (chemical given history of rectal bleeding from UC) /home PPI full code Time Spent With Patient Time: Total time spent is greater than 50% in coordination of care (as documented) at patient's floor/unit and/or counseling patient: QUALITY VTE Deep Vein Thrombosis/Pulmonary Embolism Present on Admission: No
[2021-03-08] MEDS ORDERED: DICYCLOMINE 20 MG TABLET PO PRN (08:16)
[2021-03-08] MEDS ORDERED: BUTALB/ACETAMINOPHEN/CAFFEINE 1 TABLET PO ONE (08:16)
[2021-03-08] MEDS ORDERED: BUDESONIDE 3 MG CAP.XL.24H PO SCH (09:00)
[2021-03-08] MEDS: cefTRIAXone 2 GM in DEXTROSE 5% IN WATER 50 ML IV SCH (09:24)
[2021-03-08] MEDS: BUTALB/ACETAMINOPHEN/CAFFEINE 1 TABLET PO PRN ×2 (15:27→23:26)
[2021-03-08] MEDS: ATORVASTATIN 10 MG TABLET PO SCH (19:35)
[2021-03-09] MEDS: 0.9 % SODIUM CHLORIDE 10 ML SYRINGE IV SCH ×3 (05:46→22:40)
[2021-03-09] MEDS: metroNIDAZOLE 500 MG/100 ML BAG IV SCH ×3 (05:46→22:35)
[2021-03-09 06:29] LABS: Hemoglobin 11.2 g/dL (12.0-15.0); Mean Cell Volume 92.3 fL (80.0-100.0); Mean Corpuscular HGB Conc 30.3 g/dL (31.0-36.0); Mean Platelet Volume 10.2 fL (7.4-10.4); Platelet Count 118 K/mcL (140-440); RBC 4.01 M/mcL (4.00-5.20); Red Cell Distribution Width 14.4 % (11.5-14.5); WBC 11.5 K/mcL (4.5-11.0)
[2021-03-09 06:57] LABS: Blood Urea Nitrogen 6 mg/dL (8-23); Carbon Dioxide 22 mmol/L (22-30); Chloride 106 mmol/L (96-108); Glomerular Filtration Rate 86; Glucose 91 mg/dL (70-105)
[2021-03-09] MEDS: PANTOPRAZOLE 40 MG TABLET PO SCH (08:22)
[2021-03-09] MEDS: BUDESONIDE 3 MG CAP.XL.24H PO SCH (08:23)
--- NOTE | 2021-03-09 08:36 | Internal Med Progress Note ---
SUBJECTIVE Subjective Patient information: Note initiated : 03/09/21 at 8:32 am Service Date, if different from initiated Date: [] Patient: Toyin Leonardo 70 y/o F admitted on 03/07/21 for dizzy. Chief Complaint: [] Interval history: History of present illness: Ms. Leonardo is a 70 year old F Who underwent a colonoscopy today and has a history of ulcerative colitis with occasional rectal bleeding. Colonoscopy report is read as postop diagnosis resolved colitis. She says she started feeling quite ill later on in the day with nausea vomiting headache dizziness. She was not feeling that well afterwards but attributed that to the bowel prep and feeling dehydrated. She went to see Faith Whitaker who noted she was tachycardic and orthostatic and sent her to the ED. In the ED she was hypoxic at 83% on room air. Chest x-ray showed left side infiltrate. Patient did say she was left lateral recumbent position during the procedure. She denies cough currently. 8 Feeling much better today after IV fluid boluses. Poor sleep. Headaches. No vomiting. 03/09 Patient continues to feel better. Does have some headaches but improved. No nausea vomiting. Feeling less weak. On 1 L nasal cannula. Review of Systems: denies headache/fever/chills/vomiting/chest or abdominal pain/cough/dyspnea/diarrhea. Otherwise see above. Constitutional Vitals: Vital Signs Temp Pulse Resp BP Pulse Ox 97.4 F 78 16 130/66 92 03/09/21 07:23 03/09/21 07:23 03/09/21 07:23 03/09/21 07:23 03/09/21 07:23 Period Temp Pulse Resp BP Sys/Woodson Pulse Ox Last 24 Hr 97.4 F-98.7 F 78-93 16-18 107-139/58-71 92-93 Intake and Output 03/08/21 03/09/21 03/09/21 21:59 05:59 13:59 Intake Total 580 300 Output Total 900 350 Balance -320 -50 Weight 73.21 kg Intake & Output: Intake & Output 03/08/21 03/09/21 03/09/21 21:59 05:59 13:59 Intake Total 580 300 Output Total 900 350 Balance -320 -50 Weight 73.21 kg Intake: IV 100 100 Oral 480 200 Output: Void Amount 900 350 Other: Meal Dinner Percent of Meal Consumed 100% Feeding Ability Independent Urine Appearance Clear Clear Urine Color Pale Bright Yellow Urine Odor Normal Normal Stool Size Moderate Moderate Stool Color Brown Brown Bright Red Blood Bright Red Blood Stool Consistency Soft Liquid Loose Loose # Voids 1 # Bowel Movements 1 Exam: General: Alert, Awake, No acute Distress Eyes/N/T: EOMI, Head/Neck: neck supple, CV: RRR, No murmurs, Pulm: Left-sided rhonchi/rales gradually improving, no wheezing Abd: soft, nontender, +BS x4 Ext: no clubbing/cyanosis/edema Neuro: Alert, no focal deficits, moves all extremities, Skin: warm/dry OBJ DATA Labs CBC & Chem 7: 03/09/21 05:08 03/09/21 05:08 Labs: Abnormal Lab Results 03/09/21 03/09/21 03/09/21 05:08 05:08 05:08 WBC 11.5 H Hgb 11.2 L MCHC 30.3 L RDW Plt Count 118 L Neut % (Auto) Lymph % (Auto) Lymph # (Auto) [place] # (Auto) Absolute Neutrophils Potassium Chloride Anion Gap BUN 6 L Glucose Calcium 8.0 L Total Bilirubin Direct Bilirubin GGT AST ALT Lactate Dehydrogenase C-Reactive Protein 23.30 H NT-Pro-B Natriuret Pep Total Protein Albumin Procalcitonin 3.84 H Urine Occult Blood Ur Leukocyte Esterase Urine RBC Urine WBC 03/08/21 03/08/21 03/08/21 05:18 05:18 05:17 WBC 15.6 H Hgb 11.9 L MCHC RDW 14.6 H Plt Count 135 L Neut % (Auto) 81.3 H Lymph % (Auto) 10.7 L Lymph # (Auto) [place] # (Auto) 1.07 H Absolute Neutrophils 12.66 H Potassium Chloride Anion Gap 7.0 L BUN Glucose Calcium 8.1 L Total Bilirubin 1.1 H Direct Bilirubin 0.3 H GGT 67 H AST 51 H ALT Lactate Dehydrogenase 283 H C-Reactive Protein NT-Pro-B Natriuret Pep Total Protein 5.2 L Albumin 3.0 L Procalcitonin 3.85 H Urine Occult Blood Ur Leukocyte Esterase Urine RBC Urine WBC 03/08/21 03/07/21 03/07/21 05:17 18:43 17:18 WBC Hgb MCHC RDW Plt Count Neut % (Auto) Lymph % (Auto) Lymph # (Auto) [place] # (Auto) Absolute Neutrophils Potassium Chloride Anion Gap BUN Glucose Calcium Total Bilirubin Direct Bilirubin GGT AST ALT Lactate Dehydrogenase C-Reactive Protein 9.30 H NT-Pro-B Natriuret Pep 198.4 H Total Protein Albumin Procalcitonin 0.66 H Urine Occult Blood Ur Leukocyte Esterase Urine RBC Urine WBC 03/07/21 03/07/21 03/07/21 17:18 17:18 17:18 WBC 11.6 H Hgb MCHC RDW Plt Count Neut % (Auto) 83.4 H Lymph % (Auto) 11.0 L Lymph # (Auto) 1.27 L [place] # (Auto) Absolute Neutrophils 9.64 H Potassium 3.1 L Chloride 94 L Anion Gap BUN Glucose 132 H Calcium Total Bilirubin 1.5 H Direct Bilirubin GGT AST 65 H ALT 41 H Lactate Dehydrogenase C-Reactive Protein 1.30 H NT-Pro-B Natriuret Pep Total Protein Albumin Procalcitonin Urine Occult Blood Ur Leukocyte Esterase Urine RBC Urine WBC 03/07/21 01:10 WBC Hgb MCHC RDW Plt Count Neut % (Auto) Lymph % (Auto) Lymph # (Auto) [place] # (Auto) Absolute Neutrophils Potassium Chloride Anion Gap BUN Glucose Calcium Total Bilirubin Direct Bilirubin GGT AST ALT Lactate Dehydrogenase C-Reactive Protein NT-Pro-B Natriuret Pep Total Protein Albumin Procalcitonin Urine Occult Blood >=1.0 A Ur Leukocyte Esterase 500 A Urine RBC 6 H Urine WBC 42 H Meds: Medications Acetaminophen (Acetaminophen 325 Mg Tablet) 650 mg PO Q6HP PRN PRN Reason: PAIN/FEVER > 101 Last Admin: 03/08/21 04:55 Dose: 650 mg Documented by: Acetaminophen/Butalbital/Caffeine (Butalb/Acetaminophen/Caffeine 1 Tablet) 1 tab PO Q6HP PRN PRN Reason: Headache Last Admin: 03/08/21 23:26 Dose: 1 tab Documented by: Albuterol/Ipratropium (Ipratropium/Albuterol 3 Ml Ampul.Neb) 3 ml NEB Q4HP PRN PRN Reason: Shortness Of Breath Last Admin: 03/07/21 22:56 Dose: 3 ml Documented by: Atorvastatin Calcium (Atorvastatin 10 Mg Tablet) 10 mg PO HS LOUISA Last Admin: 03/08/21 19:35 Dose: 10 mg Documented by: Budesonide (Budesonide 3 Mg Cap.Xl.24h) 9 mg PO QAM [facility] Last Admin: 03/09/21 08:23 Dose: 9 mg Documented by: Dicyclomine HCl (Dicyclomine 20 Mg Tablet) 20 mg PO DAILYP PRN PRN Reason: Diarrhea Last Admin: 03/09/21 05:56 Dose: 20 mg Documented by: Potassium Chloride 40 meq/ (Dextrose) 520 mls @ 130 mls/hr IV UD PRN PRN Reason: Potassium < 3 Magnesium Sulfate (Magnesium Sulfate) 2 gm in 50 mls @ 50 mls/hr IV UD PRN PRN Reason: Magnesium </= 1.6 Ceftriaxone Sodium 2 gm/ (Dextrose) 50 mls @ 100 mls/hr IV Q24H [facility]; Protocol Last Infusion: 03/08/21 10:00 Dose: Infused Documented by: Metronidazole (Flagyl) 500 mg in 100 mls @ 100 mls/hr IV Q8H [facility]; Protocol Last Admin: 03/09/21 05:46 Dose: 100 mls/hr Documented by: Metoclopramide HCl (Metoclopramide 10 Mg/2 Ml Vial) 10 mg IV Q6HP PRN PRN Reason: Nausea And Vomiting Ondansetron HCl (Ondansetron 4 Mg/2 Ml Vial) 4 mg IV Q4HP PRN PRN Reason: Nausea And Vomiting Pantoprazole Sodium ([facility] 40 Mg Tablet) [facility] Last Admin: 03/09/21 08:22 Dose: 40 mg Documented by: Balsalazide 750 Mg (Capsule) 1 dose PO TID [facility] Last Admin: 03/09/21 08:23 Dose: 1 dose Documented by: Budesonide- Formoterol [ Symbicort] 160-4.5 Mcg/Actuation Inhaler 1 dose INH BID [facility] Last Admin: 03/09/21 08:25 Dose: 1 dose Documented by: Polyethylene Glycol (Polyethylene Glycol 3350 17 Gm Packet) 17 gm PO DAILYP PRN PRN Reason: Constipation Potassium Chloride (Potassium Chloride 20 Meq Tablet) 40 meq PO UD PRN PRN Reason: Potssium is 3-3.5 Potassium Chloride (Potassium Chloride 20 Meq Tablet) 40 meq PO UD PRN PRN Reason: Potassium < 3 Senna (Sennosides 1 Tablet) 2 tab PO DAILYP PRN PRN Reason: Constipation Sodium Chloride (0.9 % Sodium Chloride 10 Ml Syringe) 10 ml IV Q8 [facility] Last Admin: 03/09/21 05:46 Dose: 10 ml Documented by: A/P Narrative A/P Narrative: A: *Aspiration pneumonia: -leukocytosis improving *Acute hypoxic respiratory failure: 2/2 above -on 1L NC *Hypokalemia: resolved *COPD(not on home O2): Follows with pulmonology *h/o UC: Follows with Dr. Morris *GERD: * P: -Rocephin/Flagyl -IS/Acapella -wean O2, may need O2 upon d/c given copd -pt/ot -ppx: ambulation/SCDs (chemical given history of rectal bleeding from UC)/home PPI full code Time Spent With Patient Time: Total time spent is greater than 50% in coordination of care (as documented) at patient's floor/unit and/or counseling patient: QUALITY VTE Deep Vein Thrombosis/Pulmonary Embolism Present on Admission: No
[2021-03-09 08:41] LABS: Band Neutrophils % 4 % (0-10); Lymphocytes % 7 % (15-49); Monocytes % (Manual) 8 % (1-12); Platelet Estimate DECREASED (Normal); RBC Morphology NORMAL (Normal); Segmented Neutrophils % 81 % (38-78)
[2021-03-09] MEDS: cefTRIAXone 2 GM in DEXTROSE 5% IN WATER 50 ML IV SCH (08:48)
--- NOTE | 2021-03-09 13:14 | Discharge Summary ---
Discharge Provider Provider Patient information: Note initiated : 03/09/21 at 1:11 pm Service Date, if different from initiated Date: [] Patient: Toyin Leonardo 70 y/o F admitted on 03/07/21 for dizzy. Chief Complaint: [] Date of admission: 03/07/21 20:37 Discharge date: 03/10/21 Primary care physician: Yanna Moscoso PA-C Consults: 03/07/21 Consult to Physician [CONS] Stat Comment: Consulting Provider: Cameron Saleh Reason For Exam: Physician to Consult Discharge Meds Discharge Medications Home Medications omega-3 fatty acids 1,000 mg capsule 1,000 mg PO QDAY 08/02/16 [History Confirmed 03/08/21 Last Taken 03/05/21] blood pressure test kit-medium #1 each 04/24/18 [Rx Confirmed 03/08/21 Last Taken Unknown] B-complex with vitamin C 1 tab PO QDAY 01/12/19 [History Confirmed 03/08/21 Last Taken 03/06/21] coQ10 100 mg .ROUTE DAILY 01/12/19 [History Confirmed 03/08/21 Last Taken 03/05/21] calcium phosphate 250 mg-vit D3 12.5 mcg (500 unit) chewable tablet 4 tab PO QDAY tab 10/01/19 [History Confirmed 03/08/21 Last Taken 03/06/21] emergency c 1 tab PO QDAY 10/01/19 [History Confirmed 03/08/21 Last Taken 03/05/21] magnesium oxide 400 mg PO QDAY 10/01/19 [History Confirmed 03/08/21 Last Taken 03/05/21] flnznowikoyw-ypdodhvu-zfbegu tablet 1 tab PO QDAY 10/01/19 [History Confirmed 03/08/21 Last Taken 03/05/21] vitamin E (dl, acetate) 180 mg (400 unit) capsule 180 unit PO QDAY cap 10/01/19 [History Confirmed 03/08/21 Last Taken 03/05/21] albuterol sulfate 90 mcg/actuation aerosol inhaler 1 puff INHALATION Q6H PRN #6.7 g 02/02/20 [Rx Confirmed 03/08/21 Last Taken Unknown] fexofenadine [Genna Allergy] 180 mg PO QDAY 02/15/20 [History Confirmed 03/08/21 Last Taken 03/05/21] balsalazide 2,250 mg PO TID 03/07/21 [History Confirmed 03/08/21 Last Taken 03/05/21] dicyclomine 20 mg PO PRN PRN 03/07/21 [History Confirmed 03/08/21 Last Taken Unknown] guaifenesin [Mucinex] 600 mg PO DAILY 03/07/21 [History Confirmed 03/08/21 Last Taken 03/05/21] pantoprazole 40 mg PO QDAY 03/07/21 [History Confirmed 03/08/21 Last Taken 03/06/21] atorvastatin 10 mg tablet 10 mg PO HS 03/08/21 [History Confirmed 03/08/21 Last Taken 03/06/21] budesonide 9 mg PO QDAY 03/08/21 [History Confirmed 03/08/21 Last Taken 03/06/21] amoxicillin-pot clavulanate [Augmentin] 1 tab PO Q12H #4 tab 03/09/21 [Rx Last Taken Unknown] budesonide-formoterol [Symbicort] 2 puff INHALATION BID #10.2 g 03/10/21 [Rx Last Taken Unknown] COURSE Hospital Course Hospital course: Interval history: History of present illness: Ms. Leonardo is a 70 year old F Who underwent a colonoscopy today and has a history of ulcerative colitis with occasional rectal bleeding. Colonoscopy report is read as postop diagnosis resolved colitis. She says she started feeling quite ill later on in the day with nausea vomiting headache dizziness. She was not feeling that well afterwards but attributed that to the bowel prep and feeling dehydrated. She went to see Faith Whitaker who noted she was tachycardic and orthostatic and sent her to the ED. In the ED she was hypoxic at 83% on room air. Chest x-ray showed left side infiltrate. Patient did say she was left lateral recumbent position during the procedure. She denies cough currently. 03/08 Feeling much better today after IV fluid boluses. Poor sleep. Headaches. No vomiting. 03/09 Patient continues to feel better. Does have some headaches but improved. No nausea vomiting. Feeling less weak. On 1 L nasal cannula. 03/10 No overnight events. Patient qualified for home oxygen with RT today. A: *Aspiration pneumonia: *Acute hypoxic respiratory failure: 2/2 above *Hypokalemia: resolved *COPD(not on home O2): Follows with pulmonology *h/o UC: Follows with Dr. Morris *GERD: * Discharge diagnosis: Aspiration pneumonia acute hypoxic respite failure Secondary discharge diagnosis: COPD history of ulcer colitis GERD Time Spent with Patient Time attestation: Total time spent providing and/or coordinating discharge services: Time spent: Greater than 30 minutes EXAM Constitutional Vitals: Temp Pulse Resp BP Pulse Ox 97.4 F 78 16 130/66 95 03/09/21 07:23 03/09/21 07:23 03/09/21 07:23 03/09/21 07:23 03/09/21 08:00 Discharge Data Data Completed and Pending Labs on day of discharge: Labs from last 24 hours 03/09/21 03/09/21 03/09/21 05:08 05:08 05:08 WBC 11.5 H RBC 4.01 Hgb 11.2 L Hct 37.0 MCV 92.3 MCH 27.9 MCHC 30.3 L RDW 14.4 Plt Count 118 L MPV 10.2 Seg Neutrophils % 81 H Band Neutrophils % 4 Lymphocytes % 7 L Monocytes % (Manual) 8 Platelet Estimate Decreased A RBC Morphology Normal Sodium 138 Potassium 3.7 Chloride 106 Carbon Dioxide 22 Anion Gap 10.0 BUN 6 L Creatinine 0.7 GFR Calculation 86 Glucose 91 Calcium 8.0 L C-Reactive Protein 23.30 H Procalcitonin 3.84 H Preliminary micro results at discharge 03/08/21 01:53 Urine Culture - Preliminary Urine - Clean Void Mid-Stream 03/07/21 18:53 Blood Culture - Preliminary Blood 03/07/21 18:43 Blood Culture - Preliminary Blood Discharge Plan Patient/Caregiver Discharge Instructions Activity: increase activity as tolerated Diet: Regular Diet Prescriptions: New amoxicillin-pot clavulanate [Augmentin] 875-125 mg tablet 1 tab PO Q12H Qty: 4 RF: 0 Continued (DME) blood pressure test kit-medium kit See Dose Instructions .ROUTE .MEDSUPPLY Qty: 1 RF: 0 albuterol sulfate [ProAir HFA] 90 mcg/actuation HFA aerosol inhaler 1 puff INHALATION Q6H PRN (Reason: shortness of breath) Qty: 6.7 RF: 2 omega-3 fatty acids [Fish Oil Concentrate] 1,000 mg capsule 1,000 mg PO QDAY RF: 0 vitamin E (dl, acetate) 400 unit capsule 180 unit PO QDAY RF: 0 B-complex with vitamin C [Super B Complex-Vitamin C] tablet 1 tab PO QDAY RF: 0 coQ10 tablet 100 mg .Route DAILY RF: 0 magnesium oxide 250 mg magnesium tablet 400 mg PO QDAY RF: 0 emergency c 1 tab PO QDAY RF: 0 hgdoqjijbtiu-lqpzudpo-apefmc Tablet 1 tab PO QDAY RF: 0 calcium phosphate-vitamin D3 [Citracal-D3 Gummies] 250 mg calcium- 500 unit tablet,chewable 4 tab PO QDAY RF: 0 fexofenadine [Genna Allergy] 180 mg Tablet 180 mg PO QDAY RF: 0 balsalazide 750 mg Capsule 2,250 mg PO TID RF: 0 guaifenesin [Mucinex] 600 mg Tablet Extended Release 12hr 600 mg PO DAILY RF: 0 pantoprazole 20 mg tablet,delayed release (DR/EC) 40 mg PO QDAY RF: 0 dicyclomine 20 mg tablet 20 mg PO PRN PRN (Reason: Diarrhea) RF: 0 atorvastatin 10 mg tablet 10 mg 10 mg PO HS RF: 0 budesonide 3 mg capsule,delayed,extend.release 9 mg PO QDAY RF: 0 budesonide-formoterol [Symbicort] 80-4.5 mcg/actuation Hfa Aerosol Inhaler 2 puff INHALATION BID Qty: 10.2 RF: 0 Follow Up Plan Follow up with: Yanna Moscoso PA-C [Primary Care Provider] - Patient Disposition: Home, Self-Care Prognosis: Fair Overall status at discharge: patient is progressing back to baseline Discharge Orders: Discharge Order (Routine); Ordered 03/10/21 Ordered By: Cameron Saleh [facility] VTE Deep Vein Thrombosis/Pulmonary Embolism Present on Admission: No
[2021-03-09] MEDS: BUTALB/ACETAMINOPHEN/CAFFEINE 1 TABLET PO PRN (20:19)
[2021-03-09] MEDS: ATORVASTATIN 10 MG TABLET PO SCH (20:19)
[2021-03-10] MEDS: metroNIDAZOLE 500 MG/100 ML BAG IV SCH (05:44)
[2021-03-10] MEDS: 0.9 % SODIUM CHLORIDE 10 ML SYRINGE IV SCH (05:45)
[2021-03-10] MEDS: PANTOPRAZOLE 40 MG TABLET PO SCH (07:31)
[2021-03-10] MEDS ORDERED: FLUTICASONE/SALMETEROL 250/50 INHALER #14 INH SCH (09:00)
[2021-03-10] MEDS: BUDESONIDE 3 MG CAP.XL.24H PO SCH (10:15)
[2021-03-10] MEDS: cefTRIAXone 2 GM in DEXTROSE 5% IN WATER 50 ML IV SCH (10:20)
[2021-03-10] MEDS: BUTALB/ACETAMINOPHEN/CAFFEINE 1 TABLET PO PRN (12:41)
== END 2021-03-10 13:20 | disposition home or self-care (01) | DRG 177 ==
LOC: ED 17:01 → MEDSUR 20:37
PROVIDERS: ADMIT Internal Medicine; ATTEND Internal Medicine